=== PATIENT | male | born 1945 | race Two or more races ===

== ENCOUNTER 2019-12-16 19:47 | Inpatient (IN) | payer MEDICARE, MEDICAID ==
[~2019-12-16] VITALS: Ht 160 cm; Wt 66.3 kg
[2019-12-17 00:31] LABS: Basophils # (auto) 0 10 ^3/uL (0-0.2); Basophils % (auto) 0.5 % (0.0-2.0); Eosinophils # (auto) 0.6 10 ^3/uL (0-0.8); Eosinophils % (auto) 7.1 % (0.0-7.0); Hematocrit 33.7 % (41.0-53.0); Hemoglobin 10.8 g/dL (13.5-17.5); Lymphocytes # (auto) 2.8 10 ^3/uL (0.4-5.4); Lymphocytes % (auto) 32.2 % (10.0-50.0); Mean Corpuscular Hemoglobin 27.2 pg (28.0-32.0); Mean Corpuscular Hgb Conc. 32.1 g/dL (32.0-36.0); Mean Corpuscular Volume 84.7 fL (80.0-100.0); Monocytes # (auto) 0.7 10 ^3/uL (0-1.3); Monocytes % (auto) 8.6 % (0.0-12.0); Neutrophils # (auto) 4.4 10 ^3/uL (1.6-8.6); Neutrophils % (auto) 51.6 % (37.0-80.0); Nucleated Red Blood Cells % 0.1 %; Platelet Count (auto) 349 10^3/uL (140-450); Red Blood Cells 3.98 10^6/uL (4.5-5.90); Red Cell Distribution Width 15.6 % (11.8-14.3); White Blood Cell 8.6 10^3/uL (4.4-10.8)
[2019-12-17 00:49] LABS: Albumin 3.3 g/dL (3.4-5.0); Calcium 8.7 mg/dL (8.5-10.1); Potassium 4.7 mmol/L (3.5-5.1)
[2019-12-17 00:52] LABS: BUN/Creatinine Ratio 26.3
[2019-12-17 00:54] LABS: Bilirubin, Total 0.3 mg/dL (0.2-1.0); Total Protein 8.1 g/dL (6.4-8.2)
[2019-12-17] MEDS ORDERED: PIPERACILLIN-TAZOB 3.375GM 100 ML IV ONE (01:00)
[2019-12-17] MEDS ORDERED: DEXTROSE (50%) 50ML SYRG IV PRN (05:45)
[2019-12-17] MEDS ORDERED: ONDANSETRON HCL 4 MG/2 ML VIAL IV PRN (05:45)
[2019-12-17] MEDS ORDERED: SODIUM CHLORIDE 0.9% 1,000 ML IV SCH (05:45)
[2019-12-17] MEDS ORDERED: hydrALAZINE HCL 20 MG/ML VL IV PRN (05:45)
[2019-12-17] MEDS: InsuLIN REG 1unit/0.01ml Soln (100units/ml) SC SCH ×3 (06:00→18:15)
[2019-12-17] MEDS: ACCU-CHEK COMFORT CURVE STRIP VI SCH ×3 (06:05→18:13)
[2019-12-17] MEDS: cefTRIAXone 1GM/50ML D5W 50 ML IV SCH (06:06)
[2019-12-17] MEDS: CLINDAMYCIN 600MG IV 50 ML IV SCH ×3 (06:31→22:30)
[2019-12-17 09:00] VITALS: BP 127/71
[2019-12-17 09:02] VITALS: BP 127/71
[2019-12-17 13:00] VITALS: BP 105/63
--- NOTE | 2019-12-17 13:22 | NUR ---
WOUND CARE NOTE: Wound care in to see patient per wound care request regarding "Right BKA abscess" wound that are noted present on admission. Bedside nurse took photograph of patient's wound upon admission for reference. Patient is 73 years old male with admitting diagnosis of Right Lower Extremity Abscess with Cellulitis. Patient is resting in bed in Rm. 278A. Patient is awake, alert and oriented. He denies pain at this time. He's self turning and repositioning. His Aroldo score is 15 . Per bedside nurse's report, patient has surgery at [facility] three years ago. 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 Wound is red with bright red edematous anastasiia wound, scant serous drainage noted, no odor noted. Wound culture apparently already sent to lab for processing. Per KATHERINE Mckeon, patient has surgical consult for possible I&D. Cleansed patient's RT BKA stump wound with NS,patted dry with sterile gauze, applied Thera honey gauze and covered with Opti foam gentle dressing. Patient turned to his side to examine sacral and back, no other wound noted, no pressure injury noted. Patient tolerated examination well. RECOMMENDATION: Nursing to continue with EOD/PRN dressing change to Rt BKA stump wound per MD order, dietary consult for wound, surgical consult, elevate affected extremity pillows, continue monitoring by wound care while patient is hospitalized. Addendum: 12/17/19 at 1721 by Karla Santiago RN Amended: Links added.
[2019-12-17] MEDS: SODIUM CHLORIDE 0.9% 1,000 ML IV SCH (13:27)
[2019-12-17 17:00] VITALS: BP 102/57
[2019-12-17 22:00] VITALS: BP 134/75
[2019-12-18 05:17] VITALS: BP 131/65
[2019-12-18] MEDS: SODIUM CHLORIDE 0.9% 1,000 ML IV SCH ×2 (05:40→22:20)
[2019-12-18] MEDS: ACCU-CHEK COMFORT CURVE STRIP VI SCH ×4 (05:57→17:30)
[2019-12-18] MEDS: InsuLIN REG 1unit/0.01ml Soln (100units/ml) SC SCH ×4 (05:57→18:00)
[2019-12-18] MEDS: CLINDAMYCIN 600MG IV 50 ML IV SCH (05:57)
[2019-12-18 06:33] LABS: Basophils # (auto) 0 10 ^3/uL (0-0.2); Basophils % (auto) 0.6 % (0.0-2.0); Eosinophils # (auto) 0.6 10 ^3/uL (0-0.8); Eosinophils % (auto) 9.3 % (0.0-7.0); Hematocrit 30.7 % (41.0-53.0); Hemoglobin 10.2 g/dL (13.5-17.5); Lymphocytes # (auto) 1.4 10 ^3/uL (0.4-5.4); Lymphocytes % (auto) 20.4 % (10.0-50.0); Mean Corpuscular Hemoglobin 27.7 pg (28.0-32.0); Mean Corpuscular Hgb Conc. 33.1 g/dL (32.0-36.0); Mean Corpuscular Volume 83.8 fL (80.0-100.0); Monocytes # (auto) 0.5 10 ^3/uL (0-1.3); Monocytes % (auto) 7.4 % (0.0-12.0); Neutrophils # (auto) 4.2 10 ^3/uL (1.6-8.6); Neutrophils % (auto) 62.3 % (37.0-80.0); Platelet Count (auto) 317 10^3/uL (140-450); Red Blood Cells 3.67 10^6/uL (4.5-5.90); Red Cell Distribution Width 15.5 % (11.8-14.3); White Blood Cell 6.7 10^3/uL (4.4-10.8)
[2019-12-18 06:51] LABS: Potassium 4.5 mmol/L (3.5-5.1)
[2019-12-18 06:59] LABS: BUN/Creatinine Ratio 22.4; Calcium 8.6 mg/dL (8.5-10.1); Magnesium 2.4 mg/dL (1.6-2.6)
--- NOTE | 2019-12-18 07:30 | NUR ---
Opening Shift Note Assumed care of patient, awake and alert. No S/S of distress/SOB or pain. Instructed on POC and to call for assist PRN, will continue to monitor for changes Q1hr and PRN. Bed is locked and in lowest position. Call light within reach.
[2019-12-18 08:00] VITALS: BP 133/71
[2019-12-18 09:00] VITALS: BP 133/71
[2019-12-18] MEDS: cefTRIAXone 1GM/50ML D5W 50 ML IV SCH (09:13)
--- NOTE | 2019-12-18 11:00 | NUR ---
DR. LUIS ANGEL PLASENCIA AT BEDSIDE TO DISCUSS PLAN OF CARE WITH PATIENT. PATIENT INFORMED OF DISCHARGE WITH IV ANTIBIOTICS HOME HEALTH AND PICC LINE PLACEMENT. PATIENT AGREED WITH HOME HEALTH PLAN AND PICC LINE PLACEMENT. PATIENT SIGNED CONSENTS FOR PICC LINE PLACEMENT. PATIENT HAS RECEIVED HOME HEALTH BEFORE FOR IV ANTIBIOTICS. DR. PLASENCIA SPOKE TO PATIENT REGARDING CODE STATUS PATIENT WOULD LIKE TO BE DNR STATUS. FORMS SIGNED AND PATIENT STATUS CHANGED TO DNR. PATIENT AGREED WITH PLAN OF CARE. CONSENTS ARE AVAILABLE IN CHART.
[2019-12-18 13:00] VITALS: BP 128/71
[2019-12-18 13:22] LABS: INR 0.98 (0.9-1.15); Partial Thromboplastin Time 28.8 sec (23.64-32.05)
--- NOTE | 2019-12-18 14:37 | NUR ---
Nutrition Consult/assessment Notes please see attached link for complete assessment [employer] needs BW 68 [id number] kcals (23-25 kcal/kgBW) , Est Protein needs: 68-74 gms/day (1.0-1.1 gm/kgBW) d/t elev RFT wounds. Will continue to monitor and reassess prn. Addendum: 12/18/19 at [address] Amended: Links added.
--- NOTE | 2019-12-18 15:29 | NUR ---
Assessment Patient is a 73-year-old male who is alert and oriented. Prior to admission patient lived home alone. Patient informed me his scroll kit worker Becca helps him with his ADLs. Patient informed me he has a wheelchair for home use. Per patient he will return home to his prior living arrangements post discharge and caregiver Becca will transport him home. Advised patient there is a Social Service consult for home health IV abx for 6 weeks and wound care. Informed patient ABLERT Buchanan will work on the IV abx. Patient informed me he was on service with [facility]. Informed patient clinical information will be faxed to [facility]. Informed patient he has the right to participate in all discharge planning. Patient informed me his primary doctor is MD Dr. Otto. Patient verbalized understanding and agrees to discharge plan. Faxed clinical information to [facility]. Per Albert with [facility] order has been received and they will see patient within 24 hrs upon D/C day. Nurse was informed of d/c plan. Addendum: 12/18/19 at 1530 by BRENT RODRIGUEZ Amended: Links added.
--- NOTE | 2019-12-18 17:00 | NUR ---
ATTEMPTED PICC LINE PLACEMENT Attempted PICC line placement on bilateral upper extremities. Despite multiple attempts and multiple interventions, unable to advance PICC line centrally from either arm by myself and Sharona MURPHY. The PICC line ultimately had to be cut to a midline for access. Michelle MURPHY was notified. Midline in place to left brachial vein. Placed using sterile technique and ultrasound guidance. Internal length 12 cm. External length 0 cm. Baseline arm circumference is 29 cm. Flushes easily with NS, blood return noted from single lumen. Secured with stat-lock, biodisc, and sterile occlusive dressing. Okay to use.
[2019-12-18 22:00] VITALS: BP 155/41
[2019-12-19 05:00] VITALS: BP 122/59
[2019-12-19] MEDS: ACCU-CHEK COMFORT CURVE STRIP VI SCH ×4 (05:51→18:02)
[2019-12-19] MEDS: InsuLIN REG 1unit/0.01ml Soln (100units/ml) SC SCH ×4 (05:52→18:03)
--- NOTE | 2019-12-19 07:30 | NUR ---
Opening Shift Note Assumed care of patient, awake and alert. No S/S of distress/SOB or pain. Instructed on POC and to call for assist PRN, will continue to monitor for changes Q1hr and PRN. Bed is in lowest position and locked. Call light within reach.
[2019-12-19 08:00] VITALS: BP 109/50
[2019-12-19 09:00] VITALS: BP 141/74
[2019-12-19] MEDS ORDERED: ASPI81CH43 PO (09:03)
[2019-12-19] MEDS ORDERED: AMLO2.5T7 PO (09:03)
[2019-12-19] MEDS ORDERED: INS7030I SC (09:03)
--- NOTE | 2019-12-19 09:35 | NUR ---
0845 12/19/19 - Faxed to [facility] at [phone] face sheet, order for IV ABx ( Rocephin 2 GM IV QD x 6 weeks), H/P, labs, meds, midline note. Home Health Agency is [facility]. Pending review and acceptance.
[2019-12-19] MEDS: ASPirin 81 mg TAB PO SCH (10:38)
[2019-12-19] MEDS: CEFTRIAXONE SODIUM 2 GM in D5W 5% 50 ML IV SCH (10:39)
[2019-12-19 13:00] VITALS: BP 131/81
--- NOTE | 2019-12-19 13:00 | NUR ---
HOME HEALTH PHONE CALL RECEIVED FROM [facility] REGARDING THE PHARMACY FOR PATIENT IV ANTIBIOTICS. PATIENT PHARMACY WILL BE [facility]. [facility] WILL NOTIFY PHARMACY.
[2019-12-19] MEDS: SODIUM CHLORIDE 0.9% 1,000 ML IV SCH (15:00)
[2019-12-19 16:22] VITALS: BP 138/74
--- NOTE | 2019-12-19 17:25 | NUR ---
[facility] PHONE CALL MADE TO [facility] TO VERIFY IF HOME [facility]IOTICS INFUSION WAS APPROVED. TRANSFERRED TO [facility]. MESSAGE LEFT. AWAITING RETURN CALL. UNABLE TO DISCHARGE PATIENT BECAUSE HOME INFUSION FOR ANTIBIOTICS NOT SET UP.
[2019-12-19 22:00] VITALS: BP 173/90
[2019-12-20] MEDS: ACCU-CHEK COMFORT CURVE STRIP VI SCH ×3 (00:24→12:00)
[2019-12-20 05:00] VITALS: BP 117/68
[2019-12-20] MEDS: SODIUM CHLORIDE 0.9% 1,000 ML IV SCH (05:38)
[2019-12-20] MEDS: InsuLIN REG 1unit/0.01ml Soln (100units/ml) SC SCH ×3 (05:42→12:00)
--- NOTE | 2019-12-20 07:30 | NUR ---
Opening Shift Note Assumed care of patient, awake and alert. No S/S of distress/SOB or pain on room air. Instructed on POC and to call for assist PRN, will continue to monitor for changes Q1hr and PRN. Bed in low and locked position, rails up x2, no-slip sock on. Up to bathroom independent with wheelchair for AM oral, skin care and shave.
--- NOTE | 2019-12-20 08:06 | NUR ---
RECEIVED REPORT From KATHERINE Baird. Assumed care of patient. He is out of bed in his wheelchair. Patient was updated on the plan of care and verbalized understanding. No signs of distress noted.
[2019-12-20 09:00] VITALS: BP 140/74
[2019-12-20] MEDS: CEFTRIAXONE SODIUM 2 GM in D5W 5% 50 ML IV SCH (10:03)
[2019-12-20] MEDS: ASPirin 81 mg TAB PO SCH (10:03)
[2019-12-20 10:57] VITALS: BP 140/74
--- NOTE | 2019-12-20 11:50 | NUR ---
WOUND PICTURES TAKEN PER [facility] [employer]. form filled out and pictures taken.
--- NOTE | 2019-12-20 13:01 | NUR ---
DISCHARGE Discharge instructions given as ordered. Encourage to follow up with PMD as instructed. All questions and concerns addressed. Patient verbalized understanding. Medication reconciliation form completed and copy given to patient. IV to the left forearm removed with catheter intact, pressure dressing applied, Patient discharged with the midline for home antibiotics from [facility] and home health from [facility]. Patient taken to vehicle via wheelchair with all personal belongings, accompanied by staff. No distress noted at time of departure.
== END 2019-12-20 13:01 | disposition home health service (06) | DRG 564 ==
LOC: ER 19:47 → OVERFLOW 19:48 → WEST WING 12-17 08:50
PROVIDERS: ADMIT Nurse Practitioner; ATTEND Internal Medicine
DX: T87.43 Infection of amputation stump, right lower extremity (principal); N17.0 Acute kidney failure with tubular necrosis; L03.115 Cellulitis of right lower limb; L02.415 Cutaneous abscess of right lower limb; M86.8X6 Other osteomyelitis, lower leg; E11.69 Type 2 diabetes mellitus with other specified complication; D63.8 Anemia in other chronic diseases classified elsewhere; N18.3 Chronic kidney disease, stage 3 (moderate); E11.22 Type 2 diabetes mellitus with diabetic chronic kidney disease; E11.40 Type 2 diabetes mellitus with diabetic neuropathy, unspecified; I12.9 Hypertensive chronic kidney disease with stage 1 through stage 4 chronic kidney disease, or unspecified chronic kidney disease; Z66 Do not resuscitate; Z89.511 Acquired absence of right leg below knee
CPT/HCPCS: 36415; 73700; 80048; 80053; 80061; 82962; 83036; 83605; 83735; 84443; 85025; 85610; 85730; 87040; 87205; 96361; 96365; 96367; 97110; 97163; 97530; G0378; J0696; J1815; J2543; J3490; J7060